=== PATIENT | male | born 1990 | race Caucasian/White ===

== ENCOUNTER 2016-08-08 04:38 | Emergency (ER) | payer SELFPAY ==
[~2016-08-08] VITALS: Ht 170.2 cm; Wt 82.0 kg
[~2016-08-08 04:38] MED LIST: ESCI10TA PO; HYDR2.5%T RECTAL; PRAZ1 PO; ULTR50TA5 PO
[2016-08-08 04:46] VITALS: BP 158/104; PULSE 120; RESP 20; TEMP 98.7; O2SAT 100
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
[2016-08-08] MEDS ORDERED: SODIUM CHLOR 0.9% 1000 ML INJ 1,000 ML IV ONE (05:00)
[2016-08-08 05:07] LABS: AUTOMATED NEUTROPHIL # 7.8 TH/MM3 (1.8-7.7); BASOPHIL % 0.4 % (0.0-2.0); EOSINOPHIL # 0.1 TH/MM3 (0-0.4); HEMATOCRIT 53.4 % (39.0-51.0); HEMO FLAGS DIFF FINAL; LYMPHOCYTE # 4.8 TH/MM3 (1.0-4.8); MEAN CELL VOLUME 95.6 FL (80.0-100.0); MEAN CORPUSCULAR HEMOGLOBIN 33.3 PG (27.0-34.0); MEAN CORPUSCULAR HGB CONC 34.9 % (32.0-36.0); NEUT % 56.6 % (16.0-70.0); PLATELET COUNT 225 TH/MM3 (150-450); RED BLOOD COUNT 5.59 MIL/MM3 (4.50-5.90); RED CELL DISTRIBUTION WIDTH 14.5 % (11.6-17.2); WHITE BLOOD COUNT 13.8 TH/MM3 (4.0-11.0)
[2016-08-08 05:18] LABS: AMPHETAMINE, URINE NEG (NEG); BARBITURATES, URINE NEG (NEG)
[2016-08-08 05:22] LABS: COCAINE, URINE NEG (NEG)
[2016-08-08 05:23] VITALS: PULSE 105
[2016-08-08 05:31] LABS: ALKALINE PHOSPHATASE 78 U/L (45-117); TOTAL BILIRUBIN ADULT 0.2 MG/DL (0.2-1.0)
[2016-08-08 05:56] LABS: BLOOD UREA NITROGEN 6 MG/DL (7-18); GLOMERULAR FILTRATION RATE 99 ML/MIN (>89)
[2016-08-08 05:57] LABS: ACETAMINOPHEN LESS THAN 2.0 MCG/ML (10.0-30.0); ALT (GPT) 67 U/L (12-78); ANION GAP 15 MEQ/L (5-15); AST (GOT) 55 U/L (15-37); BICARBONATE 20.1 MEQ/L (21.0-32.0); CHLORIDE 108 MEQ/L (98-107); POTASSIUM 3.7 MEQ/L (3.5-5.1); SODIUM (NA) 143 MEQ/L (136-145)
[2016-08-08 06:31] VITALS: BP 126/62; PULSE 104; RESP 16; O2SAT 96
[2016-08-08 08:42] VITALS: BP 123/78; PULSE 71; RESP 16; TEMP 98.4; O2SAT 97
[2016-08-08 14:55] VITALS: BP 123/78; PULSE 71; RESP 16; O2SAT 97
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
[2016-08-08] MEDS ORDERED: PRAZOSIN HCL 1 MG CAP PO SCH (21:00)
[2016-08-09] MEDS ORDERED: ESCITALOPRAM OXALATE 10 MG TAB PO SCH (09:00)
== END 2016-08-08 08:02 ==
LOC: NEPE 04:38 → NEPJ 08:02
DX: F10.129 Alcohol abuse with intoxication, unspecified (principal); F41.8 Other specified anxiety disorders; I10 Essential (primary) hypertension; F17.210 Nicotine dependence, cigarettes, uncomplicated; F31.9 Bipolar disorder, unspecified; F43.10 Post-traumatic stress disorder, unspecified; Y90.8 Blood alcohol level of 240 mg/100 ml or more; Z91.14 Patient's other noncompliance with medication regimen
CPT/HCPCS: 80053; 80307; 80320; 85025; 96360; 99284; J7030; 80329; G0480

== ENCOUNTER 2017-11-08 11:41 | Emergency (ER) | payer SELFPAY ==
[~2017-11-08] VITALS: Ht 172.7 cm; Wt 82.0 kg
[~2017-11-08 11:41] MED LIST changes: +TRAM50 PO; -ULTR50TA5 PO
[2017-11-08 11:44] VITALS: BP 176/93; PULSE 97; RESP 18; TEMP 98.9; O2SAT 99
[2017-11-08] MEDS ORDERED: BP medication PO (14:16)
[2017-11-08] MEDS ORDERED: ZOFR4TAB3 SL (14:48)
[2017-11-08] MEDS ORDERED: BACT800T5 PO (14:48)
[2017-11-08] MEDS ORDERED: IBUP1TAB7 PO (14:48)
--- NOTE | 2017-11-08 14:49 | PD ---
HPI Chief Complaint: Bite or Sting Time Seen by Provider: 14:21 Travel History International Travel<30 days: No Contact w/Intl Traveler<30days: No Traveled to known affect area: No History of Present Illness HPI 27-year-old male presents to the emergency department with what he thinks is a spider bite to his right side that occurred yesterday. He did not actually see a spider. Reports being up-to-date on his tetanus vaccination. Reports nausea without vomiting. Denies fevers. Denies IV drug use. Has taken ibuprofen for symptom management. Rates pain 9/10. Worse with walking and applying pressure to the area. Better at rest. Pain radiates to his groin area. No known allergies. No primary care provider. History of hypertension and depression. Has no other medical complaints. No other modifying factors or associated signs and symptoms. PFSH Past Medical History Hx Anticoagulant Therapy: Yes ADHD: Yes Autoimmune Disease: No Anxiety: Yes Depression: Yes Cardiovascular Problems: Yes Chemotherapy: No Chest Pain: Yes Cerebrovascular Accident: No Diabetes: No Diminished Hearing: No Gastrointestinal Disorders: Yes Genitourinary: No Hypertension: Yes Musculoskeletal: Yes (OCCASIONAL LOW BACK PAIN) Neurologic: No Psychiatric: Yes Respiratory: Yes Immunizations Current: Yes Migraines: Yes Seizures: No Sickle Cell Disease: No Thyroid Disease: No Ulcer: Yes Tetanus Vaccination: < 5 Years Influenza Vaccination: No PNEUMOCCOCAL Vaccine (Year): 2 Past Surgical History Surgical History: No Previous Surgery Appendectomy: No Other Surgery: No Social History Alcohol Use: Yes (3X A WEEK) Tobacco Use: Yes (1ppd) Substance Use: No Allergies-Medications (Allergen,Severity, Reaction): Coded Allergies: No Known Allergies (Verified Adverse Reaction, Unknown, 11/08/17) Reported Meds & Prescriptions Reported Meds & Active Scripts Active Zofran Odt (Ondansetron Odt) 4 Mg Tab 4 Mg SL Q8HR PRN Ibuprofen 800 Mg Tab 800 Mg PO Q6HR PRN Bactrim DS (Sulfamethoxazole-Trimethoprim) 800-160 Mg Tab 1 Tab PO BID 10 Days Reported [BP medication] 5 Mg PO DAILY Review of Systems Except as stated in HPI: all other systems reviewed are Neg Physical Exam Narrative GENERAL: Well-nourished, well-developed male patient, in no acute distress; afebrile, nontoxic-appearing SKIN: Warm and dry. Right medial thigh with pimple-like lesion with surrounding erythema that M measures approximately 5 cm in diameter; there is no fluctuance to the area; there is a small pustule in the middle of the erythema without drainage. No lymphangitis. Right lower extremity supple nontender 2+ pedal pulse and sensory intact without erythema or edema. HEAD: Atraumatic. Normocephalic. EYES: Pupils equal and round. No scleral icterus. No injection or drainage. ENT: Mucosa pink and moist. Airway patent. NECK: Trachea midline. CARDIOVASCULAR: Regular rate. RESPIRATORY: No accessory muscle use. GASTROINTESTINAL: Flat. MUSCULOSKELETAL: No obvious deformities. No clubbing. No cyanosis. No edema. NEUROLOGICAL: Awake and alert. Oriented 3. No obvious cranial nerve deficits. Motor grossly within normal limits. Normal speech. PSYCHIATRIC: Appropriate mood and affect; insight and judgment normal. Data Data Last Documented VS Vital Signs Date Time Temp Pulse Resp B/P (MAP) Pulse Ox O2 Delivery O2 Flow Rate FiO2 11/08/17 11:44 98.9 97 18 176/93 (120) 99 Orders Orders Sulfamet-Trimeth Ds 800-160 Mg (Bactrim (11/08/17 15:00) Ibuprofen (Motrin) (11/08/17 15:00) Wound Culture And Gram Stain (11/08/17 14:49) Ed Discharge Order (11/08/17 14:50) [facility] Medical Decision Making Medical Screen Exam Complete: Yes Emergency Medical Condition: Yes Medical Record Reviewed: Yes Differential Diagnosis Insect bite, MRSA, cellulitis, abscess Narrative Course 27-year-old male with a pimple-like cellulitic area to his right medial thigh. I broke the pustule open and obtained a wound culture. Tetanus is up-to-date on his tetanus vaccination. He is afebrile nontoxic appearing. There is no lymphangitis. There is no fluctuant abscess. I circled the area with a surgical marker. I will start the patient on antibiotics and I discussed having the patient come back if an abscess forms for incision and drainage. He verbalized understanding and agreement. Bactrim and ibuprofen administered in the ER. Wound culture pending. Bactrim, Zofran, ibuprofen prescribed for home. Instructed patient to follow up with primary care provider. Patient verbalizes understanding and agreement with treatment plan. Patient is medically cleared and stable for discharge. Discussed reasons to return to the emergency department. Patient agrees with treatment plan. The patients vital signs are stable and the patient is stable for outpatient follow-up and treatment. Patient discharged home, stable and in no acute distress. Diagnosis Primary Impression: Cellulitis of right thigh Referrals: [facility] Primary Care Physician Patient Instructions: Cellulitis (ED), General Instructions, Insect Bite or Sting (ED) Additional Instructions: Complete full course of antibiotics Warm compresses to the affected area Keep area clean and dry Ibuprofen or Tylenol as directed and as needed for pain and inflammation Follow-up with primary care provider Return to emergency department immediately with worsening of symptoms Med/Other Pt SpecificInfo: Prescription(s) given Scripts Ondansetron Odt (Zofran Odt) 4 Mg Tab 4 MG SL Q8HR Y for Nausea/Vomiting, #6 TAB 0 Refills Prov: Pooja Machado 11/08/17 Ibuprofen (Ibuprofen) 800 Mg Tab 800 MG PO Q6HR Y for PAIN, #30 TAB 0 Refills Prov: Pooja Machado 11/08/17 Sulfamethoxazole-Trimethoprim (Bactrim DS) 800-160 Mg Tab 1 TAB PO BID for Infection for 10 Days, #20 TAB 0 Refills Prov: Pooja Machado 11/08/17 Disposition: 01 DISCHARGE HOME Condition: Stable Pooja Machado November 08, 2017 14:49
[2017-11-08] MEDS ORDERED: IBUPROFEN 800 MG TAB PO ONE (15:00)
[2017-11-08] MEDS ORDERED: SULFAMETHOXAZOLE-TRIMETHOPRIM DS 800-160 MG TAB PO ONE (15:00)
== END 2017-11-08 15:05 | disposition home or self-care (01) ==
LOC: NEPD 11:41
DX: L03.115 Cellulitis of right lower limb (principal); B95.61 Methicillin susceptible Staphylococcus aureus infection as the cause of diseases classified elsewhere; R11.0 Nausea; I10 Essential (primary) hypertension; F32.9 Major depressive disorder, single episode, unspecified; F90.9 Attention-deficit hyperactivity disorder, unspecified type; F41.9 Anxiety disorder, unspecified; F17.200 Nicotine dependence, unspecified, uncomplicated
CPT/HCPCS: 86403; 87070; 87186; 87205; 99283